=== PATIENT | male | born 1985 | race Caucasian/White ===

== ENCOUNTER → 2024-04-14 08:34 | Outpatient (BNVA) | payer OTHER, SELFPAY | PROVIDERS: Visit Provider Internal Medicine | DX: S67.21XA Crushing injury of right hand, initial encounter (principal); W23.2XXA Caught, crushed, jammed or pinched between a moving and stationary object, initial encounter | CPT/HCPCS: 29085; 73110; 73130; 99203 ==

== ENCOUNTER → 2024-04-16 09:09 | Outpatient (BNVA) | payer OTHER, SELFPAY | PROVIDERS: Visit Provider Internal Medicine | DX: S67.21XA Crushing injury of right hand, initial encounter (principal); W23.2XXA Caught, crushed, jammed or pinched between a moving and stationary object, initial encounter | CPT/HCPCS: 99213 ==

== ENCOUNTER 2024-04-19 15:38 | Outpatient (AMB) | payer BC, SELFPAY ==
--- NOTE | 2024-04-19 15:46 | A.OFFPC_ITS ---
Vital Signs 04/19/24 15:54 Height 6 ft 4 in Weight 264 lb BMI 32.1 BP 122/72 Blood Pressure Location Rt brachial Position Sitting Respiration 12 Pulse 68 Pulse Source Pulse Oximeter Pulse Oximetry (%) 97 Oxygen Delivery Method Room Air Intake Visit Reasons: crnp/est care/pvc heart issues Intake Note: new patient to [facility] and patient complaining of lump on scrotum. 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 Patient endorses intermittent palpitations over the past 10 years. It is described as feeling like his heart pauses followed by a few forceful beats. He sought evaluation for the initial episode at [facility] or [facility], and the workup was negative. A couple of years later he was driving with a co-worker, and the same thing happened so he was taken to the emergency department. He reports EKG showed PVC. He notices that symptoms over the past several years or triggered by dehydration or if he eats a lot of junk food. He avoids caffeine. He drinks beer occasionally. He denies exertional palpitations. He smokes marijuana 3 or 4 times per week. No illicit drug use or stimulant use. He reports his father had coronary artery disease that developed in his 60s. No family history of early CAD. A few uncles also have pacemakers. Denies dizziness, syncope, shortness of breath, leg swelling, chest pain. ROS: Constitutional: No unexplained weight loss, fever, chills, fatigue or night sweats. Respiratory: No shortness of breath, cough or sputum production. Cardiovascular: No chest pain, chest pressure or chest discomfort. No pedal edema. Neurologic: No headache, dizziness, syncope Endocrine: No cold or heat intolerance. No polyuria or polydipsia. Psychiatric: No depression or anxiety. No SI/HI. Physical exam: Constitutional: Alert, in no distress. Neck: Supple, Full range of motion. No lymphadenopathy. No palpable thyroid masses. Respiratory: Clear to auscultation. Cardiovascular: S1 S2 regular. No murmurs. Extremities: Warm and well perfused. No clubbing, cyanosis or edema. Psychiatric: Normal mood and affect [facility] Medical History (Updated 04/19/24 @ 16:34 by MOLLY Pablo) Screening for cardiovascular condition Palpitations Lump in scrotum Surgical History No pertinent past surgical history Family History Paternal Grandfather Cancer Father Cardiovascular disease Hypertension Maternal Grandfather Cardiovascular disease Social History (Updated 04/19/24 @ 15:51 by Griselda Ewing MA) Household Members: Significant Other and Children Both parents involved: No Caregiver staying overnight: No Housing: House Are you a primary dog day care attendant to a significant other at home: No Do you presently have visiting nurse or other home services: No 75 years or older and lives alone: No Alcohol intake: current Alcohol intake frequency: a few times a month Patient Tobacco Use Status: Never used Tobacco e-Cigarette/Vaping Use: Never Used Second Hand Smoke Exposure: No Substance Use Type: Marijuana service: No Current occupational status: employed Current occupation: [employer] Cognitive needs: No Hearing needs: No Vision needs: No Questionnaire PHQ-9 Over the last 2 weeks, how often have you been bothered by any of the following problems? 1. Little interest or pleasure in doing things: not at all 3. Trouble falling or staying asleep, or sleeping too much: not at all 5. Poor appetite or overeating: not at all 6. Feeling bad about yourself - or that you are a failure or have let yourself or your family down: not at all 7. Trouble concentrating on things, such as reading the newspaper or watching television: not at all 8. Moving or speaking so slowly that other people could have noticed. Or the opposite - being so fidgety or restless that you have been moving around a lot more than usual: not at all 9. Thoughts that you would be better off or of hurting yourself in some way: not at all 84131 - PHQ-9 Billing: Yes Source: Developed by Drs. Onel Viera, Kayla Santana, Everton Aguayo and colleagues, with an educational matias from [employer]. Thrive Questionnaire Date Thrive assessed: 04/19/24 I am a: Patient What is your living situation today?: I have a steady place to live Within the past 12 months, did the food you bought not last and you didn't have the money to get more?: Never true Within the past 12 months, did you worry whether your food would run out before you got money to buy more?: Never true Do you have trouble paying for medicines?: No Do you have trouble getting transportation to medical appointments?: No Do you have trouble paying your heating and electricity bill?: No Do you have trouble taking care of your child, family member or friend?: No Do you have trouble with day-to-day activities such as bathing, preparing meals, shopping, managing finances, etc.?: No Are you currently unemployed and looking for a job?: No Are you interested in more education?: No Please select the resources that you would like help with: None Currently or been in a relationship where the following occur: No concerns reported THRIVE Score: 0 AUDIT C Alcohol Use Questionnaire (AUDIT-C) 1. How often do you have a drink containing alcohol?: Monthly or less 2. How many drinks containing alcohol do you have on a typical day when you are drinking?: 3 or 4 3. How often do you have six or more drinks on one occasion?: Less than monthly Total Score: 3 KRYSTAL-7 AMB Questionnaire KRYSTAL-7 Date KRYSTAL - 7 assessed: 04/19/24 Feeling nervous, anxious, or on edge: 0 = Not at all Not being able to stop or control worryin = Not at all Worrying too much about different things: 0 = Not at all Trouble relaxin = Not at all Being so restless that it is hard to sit still: 0 = Not at all Becoming easily annoyed or irritable: 0 = Not at all Feeling afraid as if something awful might happen: 0 = Not at all Total KRYSTAL-7 score (0-4 normal; 5-9 mild; 10-14 moderate; 15-21 severe): 0 Source: Developed by Kayla Del AngelW. Max, Everton Aguayo and colleagues, with an educational matias from [employer]. KRYSTAL-7 Assessment Billing KRYSTAL-7 Assessment Tool: KRYSTAL-7 Assessment 74581 Physical exam (Primary Care) Vital Signs: Last Vital Signs Pulse 68 04/19/24 15:54 Resp 12 04/19/24 15:54 BP 122/72 04/19/24 15:54 Pulse Ox 97 04/19/24 15:54 Oxygen Delivery Method Room Air 04/19/24 15:54 BMI result Body Mass Index 32.1 Tobacco/Smoking Status: Tobacco use Status Tobacco use date assessed 04/19/24 04/19/24 15:56 Patient Tobacco Use Status Never used Tobacco 04/19/24 15:56 e-Cigarette/Vaping Use Never Used 04/19/24 15:56 Thrive Assessment: Date of Thrive Assessment Date Thrive assessed 04/19/24 04/19/24 15:48 Currently or been in a relationship where the following occur: No concerns reported Office Procedures EKG Details: EKG was of poor quality due to chest tear. This showed normal sinus rhythm with ventricular rate of 60 beats per minute and minimal voltage criteria for LVH. 41579-Putidkydubzlptrcc, Complete Coding Level of Care Code New Pt Level 4 (66579) Complex EM visit Add On G2211 Diagnoses Palpitations R00.2 CPT Codes EKG - CPT: 38145-Dwrwgcknxegeqfmra, Complete ([id number]) Additional Codes KRYSTAL-7 Assessment Billing - KRYSTAL-7 Assessment Tool: KRYSTAL-7 Assessment 30834 ([id number]) PHQ-9 - 71854 - PHQ-9 Billing: Yes ([id number]) Assessment & Plan Assessment & Plan (1) Palpitations: Code(s): R00.2 - Palpitations Category: Medical Plan Patient to return for fasting labs. Ordered echo and Holter monitor. Continue to stay well hydrated, avoid alcohol and junk foods. This has reduced his symptoms. Warning signs warranting re-evaluation at ED reviewed. EKG today was inadequate due to poor adherence of leads due to hair. Patient will shave and return for nurse visit for EKG. Follow up in 8 weeks for physical exam. Orders: Orders ECG holter monitor 48 hour 04/19/24 R00.2 - Palpitations, Z13.6 - Encounter for screening for cardiovascular disorders TSH reflex Free T4 04/19/24 R00.2 - Palpitations, Z13.6 - Encounter for screening for cardiovascular disorders Complete Blood Count no Diff 04/19/24 R00.2 - Palpitations, Z13.6 - Encounter for screening for cardiovascular disorders Magnesium 04/19/24 R00.2 - Palpitations, Z13.6 - Encounter for screening for cardiovascular disorders AMB EKG-In Office 04/19/24 R00.2 - Palpitations, Z13.6 - Encounter for screening for cardiovascular disorders CA echo transthoracic complete 04/19/24 R00.2 - Palpitations, Z13.6 - Encounter for screening for cardiovascular disorders Comprehensive Met. Panel 04/19/24 R00.2 - Palpitations, Z13.6 - Encounter for screening for cardiovascular disorders Lipid Panel 04/19/24 E78.5 - Hyperlipidemia, unspecified, R00.2 - Palpitations, Z13.6 - Encounter for screening for cardiovascular disorders
[2024-04-19 15:54] VITALS: BP 122/72; PULSE 68; RESP 12; O2SAT 97; BMI 32.1
== END 2024-04-19 16:47 | disposition home or self-care (01) ==
PROVIDERS: PCP Physician Assistant Medical; Visit Provider Physician Assistant Medical
DX: R00.2 Palpitations (principal)

== ENCOUNTER → 2024-05-07 15:09 | Outpatient (BNVA) | payer BC, SELFPAY | PROVIDERS: PCP Physician Assistant Medical; Visit Provider Physician Assistant Medical ==

== ENCOUNTER 2024-07-19 16:07 | Outpatient (AMB) | payer BC, SELFPAY ==
--- NOTE | 2024-07-19 16:30 | A.OFFPC_ITS ---
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 Palpitations-we discussed this at his initial visit. He only had 2 or 3 episodes since he was last seen that were brought on by dehydration usually the day after drinking beer. He has been seen at the emergency department for this over the years. He had an EKG which showed a PVC. He did not have the lab orders completed yet. He denies chest pain, dizziness, shortness of breath associated with symptoms. No family history of early CAD. I ordered an echocardiogram and Holter monitor, but he did not have them completed yet because he could not get to [place] for the testing. He wants to know if we could schedule this closer. We will send the orders to [facility]. He endorses bilateral scrotal lumps. Initially he noticed 1 on the left 2 or 3 years ago, and shortly after that he noticed 1 on the right. They are not painful. He thinks they may have become a little larger over the years. One time he saw the 1 on the right form a daniels and he squeezed it and cottage cheese like material drained. No fevers, chills, redness or swelling. Denies family history of testicular cancer. He will schedule an eye exam. He is overdue for a dental visit. His PGF had colon cancer in his late 60s. Patient is due for colonoscopy at age 47. Declines flu and tetanus immunization. ROS: Constitutional: No unexplained weight loss, fever, chills, fatigue or night sweats. Eyes: No vision changes, blurry vision, double vision, eye pain, eye redness, eye discharge. ENT: No hearing loss, sneezing, congestion, runny nose or sore throat. Respiratory: No shortness of breath, cough or sputum production. Cardiovascular: No chest pain, chest pressure or chest discomfort. Nopedal edema. Gastrointestinal: No anorexia, nausea, vomiting or diarrhea. No abdominal pain or blood in stool. Genitourinary: No dysuria, hematuria, urinary frequency. Denies hematospermia. Denies penile discharge. Denies groin swelling. Neurologic: No headache, dizziness, syncope, unilateral weakness, ataxia, numbness or tingling in the extremities. Musculoskeletal: No muscle pain, back pain, joint pain or swelling. Hematologic/Lymphatics: No bleeding or bruising. No painful lymph nodes. Skin: No rash or itching. Endocrine: No cold or heat intolerance. No polyuria or polydipsia. Psychiatric: No depression or anxiety. No SI/HI. Physical exam: Constitutional: Alert, in no distress. Head: Normocephalic. Eyes: Pupils are equal, round and reactive to light. Extraocular muscles intact. Ear, Nose and Throat: Canals clear. TMs normal. Normal nasal mucosa. No nasal discharge. No oral lesions. Neck: Supple, Full range of motion. No lymphadenopathy. No palpable thyroid masses. Respiratory: Clear to auscultation. Cardiovascular: S1 S2 regular. No murmurs. Gastrointestinal: Abdomen soft, non-tender, non-distended. Normal bowel sounds. No palpable masses. Genitourinary: Muna Tanner MA chaperoned. No inguinal lymphadenopathy. No palpable hernias. No penile discharge. Patient has irregularly shaped, lumpy, firm, nontender scrotal masses bilaterally. No erythema or edema. No fluctuance. Neurologic: No focal neurological deficits. Symmetric patellar reflexes. Moves all extremities spontaneously. Sensation intact bilaterally. Skin: Multiple nevi on the upper extremities, back and head. Musculoskeletal: No gross deformities. Normal range of motion. Extremities: Warm and well perfused. No clubbing, cyanosis or edema. 3+ peripheral pulses bilaterally. Psychiatric: Normal mood and affect [facility] Medical History (Updated 07/19/24 @ 17:11 by MOLLY Pablo) Routine physical examination Screening for cardiovascular condition Palpitations Lump in scrotum Surgical History No pertinent past surgical history Family History Paternal Grandfather Cancer Father Cardiovascular disease Hypertension Maternal Grandfather Cardiovascular disease Social History (Updated 07/19/24 @ 16:34 by Muna Tanner CMA) Household Members: Significant Other and Children Both parents involved: No Caregiver staying overnight: No Housing: House Are you a primary animal care service worker to a significant other at home: No Do you presently have visiting nurse or other home services: No 75 years or older and lives alone: No Alcohol intake: current Alcohol intake frequency: a few times a month Patient Tobacco Use Status: Never used Tobacco e-Cigarette/Vaping Use: Never Used Second Hand Smoke Exposure: No Use of substances other than those prescribed or required for medical reasons: Yes Substance Use Type: Marijuana service: No Current occupational status: employed Current occupation: [employer] Cognitive needs: No Hearing needs: No Vision needs: No Questionnaire PHQ-9 Over the last 2 weeks, how often have you been bothered by any of the following problems? 1. Little interest or pleasure in doing things: not at all 2. Feeling down, depressed, or hopeless: not at all 3. Trouble falling or staying asleep, or sleeping too much: not at all 4. Feeling tired or having little energy: not at all 5. Poor appetite or overeating: not at all 6. Feeling bad about yourself - or that you are a failure or have let yourself or your family down: not at all 7. Trouble concentrating on things, such as reading the newspaper or watching television: not at all 8. Moving or speaking so slowly that other people could have noticed. Or the opposite - being so fidgety or restless that you have been moving around a lot more than usual: not at all 9. Thoughts that you would be better off or of hurting yourself in some way: not at all Total score: 0 Depression Screening Interpretation: Negative Depression Screening Done: Yes 23969 - PHQ-9 Billing: Yes Source: Developed by Drs. Onel Viera, Kayla Santana, Everton Aguayo and colleagues, with an educational matias from [employer]. Thrive Questionnaire Date Thrive assessed: 07/15/24 I am a: Patient What is your living situation today?: I have a steady place to live Within the past 12 months, did the food you bought not last and you didn't have the money to get more?: Never true Within the past 12 months, did you worry whether your food would run out before you got money to buy more?: Never true Do you have trouble paying for medicines?: No Do you have trouble getting transportation to medical appointments?: No Do you have trouble paying your heating and electricity bill?: No Do you have trouble taking care of your child, family member or friend?: No Do you have trouble with day-to-day activities such as bathing, preparing meals, shopping, managing finances, etc.?: No Are you currently unemployed and looking for a job?: No Are you interested in more education?: No Please select the resources that you would like help with: None Currently or been in a relationship where the following occur: No concerns reported THRIVE Score: 0 AUDIT C Alcohol Use Questionnaire (AUDIT-C) 1. How often do you have a drink containing alcohol?: Monthly or less 2. How many drinks containing alcohol do you have on a typical day when you are drinking?: 7 to 9 3. How often do you have six or more drinks on one occasion?: Less than monthly Total Score: 5 KRYSTAL-7 AMB Questionnaire KRYSTAL-7 Date KRYSTAL - 7 assessed: 07/19/24 Feeling nervous, anxious, or on edge: 0 = Not at all Not being able to stop or control worryin = Not at all Worrying too much about different things: 0 = Not at all Trouble relaxin = Not at all Being so restless that it is hard to sit still: 0 = Not at all Becoming easily annoyed or irritable: 0 = Not at all Feeling afraid as if something awful might happen: 0 = Not at all Total KRYSTAL-7 score (0-4 normal; 5-9 mild; 10-14 moderate; 15-21 severe): 0 Source: Developed by Drs. Onel Viera, Kayla Santana, Everton Aguayo and colleagues, with an educational matias from [employer]. KRYSTAL-7 Assessment Billing KRYSTAL-7 Assessment Tool: KRYSTAL-7 Assessment 68611 Physical exam (Primary Care) Vital Signs: Last Vital Signs Pulse 68 07/19/24 16:31 Resp 16 07/19/24 16:31 BP 132/64 07/19/24 16:47 Pulse Ox 97 07/19/24 16:31 Oxygen Delivery Method Room Air 07/19/24 16:31 BMI result Body Mass Index 33.5 Tobacco/Smoking Status: Tobacco use Status Tobacco use date assessed 07/19/24 07/19/24 16:34 Patient Tobacco Use Status Never used Tobacco 07/19/24 16:34 e-Cigarette/Vaping Use Never Used 07/19/24 16:34 PHQ-9: PHQ-9 Score PHQ-9: Total score 0 07/19/24 16:34 Depression Screening Interpretation: Negative Thrive Assessment: Date of Thrive Assessment Date Thrive assessed 07/15/24 07/19/24 16:34 Currently or been in a relationship where the following occur: No concerns reported Coding Level of Care Code Est Pt Level 3 (83802) Est Pt Prev Care 18-39y(38544) Diagnoses Palpitations R00.2 Lump in scrotum N50.89 Routine physical examination Z00.00 Additional Codes KRYSATL-7 Assessment Billing - KRYSTAL-7 Assessment Tool: KRYSTAL-7 Assessment 31924 ([id number]) PHQ-9 - 87968 - PHQ-9 Billing: Yes ([id number]) Assessment & Plan Assessment & Plan (1) Palpitations: Code(s): R00.2 - Palpitations Category: Medical Plan: We will send orders for the echocardiogram and Holter monitor to [facility]. Stay well hydrated. Avoid alcohol and caffeine and work on stress reduction when possible. Warning signs warranting ER evaluation reviewed. (2) Lump in scrotum: Code(s): N50.89 - Other specified disorders of the male genital organs Category: Medical Plan: Differential includes benign growth like a cyst versus malignancy. Urgent ultrasound and referral to Urology placed. Patient also wants urology consult to discuss vasectomy. (3) Routine physical examination: Code(s): Z00.00 - Encounter for general adult medical examination without abnormal findings Category: Medical Plan: Patient is seen today for a routine physical. As part of this visit we reviewed the following issues, which are considered and essential part of preventative health in this age group: - Testicular cancer screening, which includes self exam teaching - Screening for colon cancer - age 45 years unless patient develops concerning symptoms or there is a change in a family history which necessitates earlier screening - Blood pressure screening - Cholesterol screening - Nutritional and exercise counseling - Counseling of injury prevention including fire prevention, smoke alarms and seat belt usage - Screening for depression - Prevention of and/or testing for infectious diseases - Education about skin cancer-refer to dermatology for skin exam - Recommendations about immunizations - Recommendation of an eye exam - Screening for substance abuse Plan Follow up in 2 weeks via telehealth to review results. Reminded to have lab work done when he goes for the ultrasound. Orders: Orders US scrotum Today N50.89 - Other specified disorders of the male genital organs UA w Microscopic Today R39.9 - Unspecified symptoms and signs involving the genitourinary system Urine Culture Today R39.9 - Unspecified symptoms and signs involving the genitourinary system Referrals Dermatology Referral Z12.83 - Encounter for screening for malignant neoplasm of skin Urology Referral N50.89 - Other specified disorders of the male genital organs, Z30.09 - Encounter for other general counseling and advice on contraception
[2024-07-19 16:31] VITALS: BP 138/64; PULSE 68; RESP 16; O2SAT 97; BMI 33.5
[2024-07-19 16:47] VITALS: BP 132/64
== END 2024-07-19 17:05 | disposition home or self-care (01) ==
LOC: HO.HMCFM 16:08
PROVIDERS: PCP Physician Assistant Medical; Visit Provider Physician Assistant Medical
DX: Z00.00 Encounter for general adult medical examination without abnormal findings (principal); R00.2 Palpitations; N50.89 Other specified disorders of the male genital organs

== ENCOUNTER → 2024-07-19 16:07 | Outpatient (BNVA) | payer BC, SELFPAY | PROVIDERS: PCP Physician Assistant Medical; Visit Provider Physician Assistant Medical | DX: Z00.00 Encounter for general adult medical examination without abnormal findings (principal); R00.2 Palpitations; N50.89 Other specified disorders of the male genital organs | CPT/HCPCS: 96127 ==

== ENCOUNTER → 2024-08-05 10:32 | Outpatient (BNVA) | payer BC, SELFPAY | PROVIDERS: PCP Physician Assistant Medical; Visit Provider Physician Assistant Medical ==

== ENCOUNTER 2024-09-06 15:16 | Outpatient (REF) | payer BC, SELFPAY ==
--- NOTE | ~2024-09-06 | US_ITS ---
EXAMINATION: US SCROTUM CLINICAL INFORMATION: Scrotal mass. COMPARISON: None available. TECHNIQUE: A sonogram of the scrotum was performed assessing chavarria-scale appearance and color Doppler flow. Spectral Doppler analysis of the arterial and venous flow were performed in the testes bilaterally. FINDINGS: RIGHT: Right testicle measures 5.1 x 2.6 x 3.3 cm, volume 23.1 mL. No focal testicular parenchymal lesions are visualized. Spectral Doppler analysis of the arterial and venous flow is normal in the right testis. Right epididymal head is normal in size. No significant right hydrocele or varicocele is seen. Right epididymal Doppler flow is normal. LEFT: Left testicle measures 4.5 x 2.4 x 3.2 cm, volume 18.1 mL. No focal testicular parenchymal lesions are visualized. Spectral Doppler analysis of the arterial and venous flow is normal in the left testis. Left epididymal head is normal in size. No significant left hydrocele or varicocele is seen. Left epididymal Doppler flow is normal. Incidentally noted within the scrotal skin on the right are shadowing calcifications, measuring 1.3 x 0.6 x 1.1 cm, and 1.1 x 0.6 x 1.0 cm. Within the left scrotal skin, there are shadowing calcifications measuring 0.5 x 0.5 x 0.5 cm, and 1.2 x 1.2 x 1.2 cm. US/US scrotum IMPRESSION: 1. Normal testicles and epididymides. No significant hydrocele. No intratesticular or epididymal mass. 2. 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 This likely accounts for the palpable finding of concern. Electronically signed by: Scott Lott MD 09/06/2024 04:49 PM EDT
== END 2024-09-06 15:17 | disposition home or self-care (01) ==
LOC: HO.US 15:16
PROVIDERS: PCP Physician Assistant Medical; Visit Provider Physician Assistant Medical
DX: N50.89 Other specified disorders of the male genital organs (principal)
CPT/HCPCS: 76870

== ENCOUNTER → 2024-09-06 15:21 | Outpatient (BNV) | payer BC, SELFPAY | PROVIDERS: PCP Physician Assistant Medical; Visit Provider Radiology Diagnostic Radiology | DX: L94.2 Calcinosis cutis (principal) | CPT/HCPCS: 76870; 93976 ==

== ENCOUNTER 2024-11-15 15:30 | Outpatient (AMB) | payer BC, SELFPAY ==
--- NOTE | 2024-11-15 15:38 | A.OFFVIS_ITS ---
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 He is a patient of Dr. Rowe. He presents to the office today for - vasectomy evaluation -palpable scrotal calcifications Vasectomy evaluation The patient presents for vasectomy consultation.? He is currently engaged He has fathered 2 children, with a single partner The youngest child is - 1.5 years old His partner is aware and permissive for a vasectomy Current form of control is rhythm Current employment is works for the [employer] The vasectomy may be complicated due to a history of bilateral palpable scrotal calcifications otherwise no previous surgical history. Patient education has been provided via [facility] video, via printed information, risks of failure, recovery time, bruising and potential pain syndrome have been stressed Discussion today focused on the presence of vasectomy and the risks, benefits and alternatives that are available. Vasectomy as intended as a permanent form of control. Printed information and literature was provided to the patient. Overall there is a one in 2500 failure rate. This can occur at any time after vasectomy. Risks were discussed highlighting hematoma, spermatocele, epididymal congestion, development of sperm antibodies, and development of chronic pain estimated between 1-5%. The procedure was reviewed in detail. Anatomical diagrams of the male genitalia were used to explain the location of the vas deferens. The vas deferens will be transected, the proximal end will be cauterized, a metal clip would be applied to separate the 2 vas deferens ends. It was explained the procedure will be done in the office and takes approximately 10-15 minutes. Less common problems that arise with vasectomy include hematoma, bleeding, allergic reaction to anesthetic, epididymal infection, epididymal congestion, scrotal discomfort, spermatic leak, spermatic granuloma and the possibility of antisperm antibodies. He understands these risks and wishes to proceed. Consent was signed at the office today. He also understands that it takes 12 weeks for sperm to fully clear the system. He will need to provide a semen sample at 12 weeks and if this is not clear a 2nd sample at 16 weeks. Medical clearance to stop using protection will only be provided if he satisfies published criteria for sperm clearance. [facility] Medical History (Updated 11/15/24 @ 16:15 by [facility]) Routine physical examination Screening for cardiovascular condition Palpitations Lump in scrotum Surgical History No pertinent past surgical history Family History Paternal Grandfather Cancer Father Cardiovascular disease Hypertension Maternal Grandfather Cardiovascular disease Social History (Updated 07/19/24 @ 16:34 by Muna Tanner CMA) Household Members: Significant Other and Children Both parents involved: No Caregiver staying overnight: No Housing: House Are you a primary day care center director to a significant other at home: No Do you presently have visiting nurse or other home services: No 75 years or older and lives alone: No Alcohol intake: current Alcohol intake frequency: a few times a month Patient Tobacco Use Status: Never used Tobacco e-Cigarette/Vaping Use: Never Used Second Hand Smoke Exposure: No Substance Use Type: Marijuana service: No Current occupational status: employed Current occupation: [employer] Cognitive needs: No Hearing needs: No Vision needs: No Review of Systems Const All systems reviewed & are unremarkable except as noted in HPI and below Physical Exam Const General: cooperative, healthy appearing, comfortable, no acute distress, well developed, alert and awake Orientation/consciousness: patient oriented x3 Limitations: no limitations HEENT Head: Yes normal to inspection, Yes normocephalic and Yes atraumatic Ears: hearing grossly normal bilaterally Eyes General: appearance normal, both eyes and all related structures Neck Neck: Yes normal visual inspection and Yes trachea midline Chest Chest palpation & inspection: normal inspection of the chest Resp Effort & Inspection: normal respiratory effort and able to speak in complete sentences Cardio Rate: regular rate GI Inspection: Yes normal to inspection General: Yes no CVA tenderness Penis: circumcised Meatus: meatus normal Scrotum: other (Bilateral palpable hard calcifications noted to the scrotum) Back/Spine/Pelvis Back: no CVA tenderness Skin General skin exam: no rashes or lesions noted Neuro General: patient oriented x3 Extrem General: Yes normal to inspection Psych Appearance: grossly normal and well kempt Mental Status: mental status grossly normal Speech and movement: Normal speech and movement present and Clear speech present Affect: normal affect Attitude: cooperative Thought process: Normal thought process present Thought content: Normal thought content present Insight: Fair insight present (Psych) Judgement: Fair judgement present (Psych) Assessment & Plan Assessment & Plan (1) Lump in scrotum: Code(s): N50.89 - Other specified disorders of the male genital organs Category: Medical (2) Vasectomy evaluation: Code(s): Z30.09 - Encounter for other general counseling and advice on contraception Category: Medical (3) Anxiety about health: Code(s): R45.89 - Other symptoms and signs involving emotional state Category: Medical Plan Vasectomy was discussed at length; risks and benefits All questions were answered He denies any bothersome urinary issues Recent scrotal ultrasound results reviewed with the patient today we did discuss further treatment options and risks and benefits of these treatment options We discussed semen analysis in office verses fellows kit Consent was obtained Will schedule for vasectomy as discussed we discussed possible removal of scrotal calcifications; we discussed risk and benefits. Follow-up per doctor's orders; or sooner with any issues, concerns, and or questions. Patient Instructions: The patient had an opportunity to ask questions regarding the treatment plan. All questions were answered. Physical exam, labs, and imaging were discussed and reviewed in detail. As well as risks, benefits, and discussion of treatment choices. No major barriers to understanding were identified. The patient expressed understanding and agreement with the above treatment plan. The patient was made aware they should contact our office by phone for worsening of their current condition, the appearance of new symptoms, or with any questions or concerns. Compliance is encouraged with any medications and follow up testing that is ordered. It is a privilege to be allowed the opportunity to participate in? your urological care.? Again, if you have any questions or concerns If you have any questions or concerns please do not hesitate to contact me. The office is [phone]. This note is constructed using voice recognition software. While every effort has been made to ensure accuracy lead php developer errors may have been included. Yours sincerely, STEVO Durán Coding Level of Care Code New Pt Level 4 (53199) Diagnoses Lump in scrotum N50.89 Vasectomy evaluation Z30.09 Anxiety about health R45.89
== END 2024-11-15 16:20 | disposition home or self-care (01) ==
LOC: HO.HUSH 15:31
PROVIDERS: PCP Physician Assistant Medical; Visit Provider Nurse Practitioner Family
DX: N50.89 Other specified disorders of the male genital organs (principal); Z30.09 Encounter for other general counseling and advice on contraception; R45.89 Other symptoms and signs involving emotional state
CPT/HCPCS: 99204